=== PATIENT | female | born 1995 | race Caucasian/White ===

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

== ENCOUNTER 2018-02-08 08:44 | Emergency (ER) | payer OTHER ==
[~2018-02-08] VITALS: Ht 170.2 cm; Wt 61.7 kg
[2018-02-08 08:57] VITALS: Ht 170.2 cm; Wt 61.7 kg
[2018-02-08 09:50] LABS: BASOPHIL % 0.1 % (0-2); PLATELET COUNT 155 x10^3mcL (130-400); RED CELL DISTRIBUTION WIDTH 13.2 % (11.5-14.5)
[2018-02-08 10:18] LABS: CALCIUM 8.2 mg/dL (8.5-10.1); CARBON DIOXIDE 24.2 mmol/L (21-32); CHLORIDE SERUM 106 mmol/L (98-107); CREATININE SERUM 0.6 mg/dL (0.6-1.0); GFR1 > 60 mL/min; GLUCOSE SERUM 88 mg/dL (74-106); POTASSIUM SERUM 3.5 mmol/L (3.5-5.1); SODIUM SERUM 139 mmol/L (136-145)
[2018-02-08 10:23] LABS: ALKALINE PHOSPHATASE 59 U/L (46-116); ALT/SGPT 13 U/L (14-59); AMYLASE 74 U/L (25-115); AST/SGOT 12 U/L (15-37); BILIRUBIN TOTAL 0.3 mg/dL (0.20-1.00); LIPASE 126 IU/L (73-393); TOTAL PROTEIN, SERUM 6.9 g/dL (6.4-8.2)
[2018-02-08 10:25] LABS: ALBUMIN 3.2 g/dL (3.4-5.0)
[2018-02-08 12:24] LABS: UA SPECIFIC GRAVITY >=1.030 (1.005-1.035); microscopic required? YES; urine erythrocyte TRACE (NEGATIVE)
[2018-02-08 14:33] LABS: UA SPECIFIC GRAVITY >=1.030 (1.005-1.035); microscopic required? YES; urine erythrocyte NEGATIVE (NEGATIVE)
[2018-02-08 16:06] VITALS: BP 95/61
== END 2018-02-08 16:06 | disposition home or self-care (01) ==
LOC: ED 08:44
PROVIDERS: Emergency Medicine
DX: O23.41 Unspecified infection of urinary tract in pregnancy, first trimester (principal); R19.7 Diarrhea, unspecified; Z3A.14 14 weeks gestation of pregnancy
CPT/HCPCS: 83880; 87046; 87046-59; J0696; J2765; J7030; Q0092

== ENCOUNTER 2018-03-14 21:29 | Emergency (ER) | payer OTHER ==
[~2018-03-14] VITALS: Ht 170.2 cm; Wt 67.6 kg
[2018-03-14 23:35] VITALS: BP 108/58
== END 2018-03-14 23:43 | disposition home or self-care (01) ==
LOC: ED 21:29
DX: O9A.212 Injury, poisoning and certain other consequences of external causes complicating pregnancy, second trimester (principal); Z3A.18 18 weeks gestation of pregnancy
CPT/HCPCS: Q0092